=== PATIENT | female | born 1945 | race Caucasian/White ===

== ENCOUNTER → 2016-10-06 | Outpatient (CLI) | payer MEDICARE, OTHER | END | disposition short-term general hospital (02) | LOC: CLORTH 09-27 08:55 → EDSTATUS 09-27 08:56 → RAD 09-27 12:29 → CLORTH 10:01 | DX: Z47.1 Aftercare following joint replacement surgery (principal); Z96.641 Presence of right artificial hip joint | CPT/HCPCS: 73502-RT ==

== ENCOUNTER → 2016-11-17 | Outpatient (CLI) | payer MEDICARE, OTHER | END | disposition short-term general hospital (02) | LOC: CLORTH 10:55 | DX: Z47.1 Aftercare following joint replacement surgery (principal); M16.12 Unilateral primary osteoarthritis, left hip; Z96.641 Presence of right artificial hip joint ==